=== PATIENT | female | born 2000 | race Caucasian/White ===

== ENCOUNTER 2022-07-17 19:36 | Emergency (ER) | payer OTHER ==
[~2022-07-17] VITALS: Ht 162.6 cm; Wt 68.3 kg
[2022-07-17 19:39] VITALS: BP 145/55
[2022-07-17] MEDS ORDERED: FAMOTIDINE 20MG/2ML VIAL IV STA (20:23)
[2022-07-17] MEDS ORDERED: DIPHENHYDRAMINE 50MG/ML VIAL IV ONE (20:30)
[2022-07-17] MEDS ORDERED: SODIUM CHLORIDE 0.9% 1,000 ML IV ONE (20:30)
[2022-07-17] MEDS ORDERED: PROCHLORPERAZINE 10MG/2ML VIAL IV PRN (20:30)
[2022-07-17 20:57] LABS: BASOPHILS % 0.5 % (0.0-2.0); EOSINOPHILS % 0.2 % (0.0-5.0); HEMOGLOBIN. 12.3 g/dL (12.0-16.0); LYMPHOCYTES % 10.9 % (20.0-50.0); MEAN CORPUSCULAR HEMOGLOBIN 31.9 pg (28.0-32.0); MEAN CORPUSCULAR VOLUME 93.3 fL (81.0-99.0); MEAN PLATELET VOLUME 7.7 fl (7.4-10.4); MONOCYTES % 3.5 % (2.0-8.0); NEUTROPHILS % 84.9 % (40.0-76.0); PLATELET 330 x1000/uL (130-400); RED BLOOD CELL COUNT 3.86 mill/uL (4.2-5.4); RED CELL DISTRIBUTION WIDTH 13.6 % (11.6-14.6)
[2022-07-17 21:03] LABS: CHLORIDE 107 mEq/L (98-107)
[2022-07-17 21:25] LABS: HCG SCREEN NEGATIVE
[2022-07-17] MEDS ORDERED: ONDA4TAB11 PO (21:41)
[2022-07-17] MEDS ORDERED: POTASSIUM CHLORIDE 20MEQ TABLET SR PO NR (21:45)
== END 2022-07-17 22:07 | disposition home or self-care (01) ==
LOC: ER 19:36
DX: R11.2 Nausea with vomiting, unspecified (principal); F12.90 Cannabis use, unspecified, uncomplicated
CPT/HCPCS: 36415; 80053; 81025; 83690; 84703; 85025; 96361; 96374; 96375; 99284; J1200; J3490; J7030